=== PATIENT | female | born 1945 | race Two or more races ===

== ENCOUNTER 2022-05-06 21:58 | Emergency (ER) | payer OTHER ==
[~2022-05-06] VITALS: Ht 160 cm; Wt 58.1 kg
== END 2022-05-07 03:34 | disposition home or self-care (01) ==
LOC: ER 21:58
DX: R04.2 Hemoptysis (principal); J47.9 Bronchiectasis, uncomplicated; Z88.6 Allergy status to analgesic agent

== ENCOUNTER 2022-05-31 22:32 | Emergency (ER) | payer OTHER ==
[~2022-05-31] VITALS: Ht 157.5 cm; Wt 59.0 kg
[2022-06-01] MEDS ORDERED: MUCINEX DM ER1 EACH PO (03:01)
[2022-06-01] MEDS ORDERED: AZITHROMYCIN250 MG PO (03:01)
[2022-06-01] MEDS ORDERED: ACETAMINOPHEN500 M2 PO (03:01)
[2022-06-01] MEDS ORDERED: LEVALBUTER0.63 MG/3 IH (03:01)
== END 2022-06-01 06:20 | disposition home or self-care (01) ==
LOC: ER 22:32
DX: J06.9 Acute upper respiratory infection, unspecified (principal); B34.9 Viral infection, unspecified; Z88.6 Allergy status to analgesic agent; Z20.822 Contact with and (suspected) exposure to COVID-19; I10 Essential (primary) hypertension; E03.9 Hypothyroidism, unspecified; R50.9 Fever, unspecified; R09.81 Nasal congestion

== ENCOUNTER 2022-08-21 07:07 | Outpatient (CLI) | payer OTHER ==
[~2022-08-21 07:07] MED LIST: ACETAMINOPHEN500 M2 PO; AZITHROMYCIN250 MG PO; LEVALBUTER0.63 MG/3 IH; MUCINEX DM ER1 EACH PO
== END 2022-08-21 07:08 | disposition home or self-care (01) ==
LOC: NUCLEAR 07:07
PROVIDERS: ATTEND Internal Medicine Gastroenterology
DX: K31.84 Gastroparesis (principal)
CPT/HCPCS: 78264; A9541

== ENCOUNTER 2022-08-26 11:44 | Outpatient (CLI) | payer OTHER | END 2022-08-26 11:46 | disposition home or self-care (01) | LOC: SONOGRAMA 11:44 | PROVIDERS: ATTEND Pathology Anatomic Pathology | DX: D34 Benign neoplasm of thyroid gland (principal); E04.9 Nontoxic goiter, unspecified ==

== ENCOUNTER 2022-11-01 10:47 | Emergency (ER) | payer OTHER ==
[~2022-11-01] VITALS: Ht 157.5 cm; Wt 54.4 kg
[2022-11-01] MEDS ORDERED: SYNTHROID50 MCG (11:33)
[2022-11-01] MEDS ORDERED: NORVASC2.5 M1 (11:34)
[2022-11-01] MEDS ORDERED: BISOPROLOL-HCT1 EACH (11:34)
== END 2022-11-01 17:26 | disposition home or self-care (01) ==
LOC: ER 10:47
DX: S90.31XA Contusion of right foot, initial encounter (principal); W18.39XA Other fall on same level, initial encounter; Y93.89 Activity, other specified; Y92.018 Other place in single-family (private) house as the place of occurrence of the external cause; Z88.6 Allergy status to analgesic agent; M19.90 Unspecified osteoarthritis, unspecified site; I10 Essential (primary) hypertension; E03.9 Hypothyroidism, unspecified